=== PATIENT | male | born 1950 | race Asian ===

== ENCOUNTER 2018-06-08 19:47 | Emergency (ER) | payer MEDICARE ==
[~2018-06-08] VITALS: Ht 167.6 cm; Wt 95.5 kg
[2018-06-08 19:51] VITALS: BP 158/82
[2018-06-08] MEDS ORDERED: SIMV80TA7 PO (20:00)
[2018-06-08] MEDS ORDERED: CEPH-368 PO (20:00)
[2018-06-08] MEDS ORDERED: PROPARACAINE OPHTH 0.5%, 15ML ONE (20:01)
== END 2018-06-08 20:50 | disposition home or self-care (01) ==
LOC: ED 20:44
DX: S00.12XD Contusion of left eyelid and periocular area, subsequent encounter (principal); E78.00 Pure hypercholesterolemia, unspecified
CPT/HCPCS: 99281